=== PATIENT | male | born 1940 | race Caucasian/White ===

== ENCOUNTER 2025-10-12 07:31 | Emergency (ER) | payer MEDICARE, OTHER, SELFPAY ==
[2025-10-12] VITALS (8 sets, daily range): BP systolic 161–182; BP diastolic 76–84; PULSE 76–90; RESP 20; TEMP 36.2; O2SAT 97–98; BMI 30.2
--- NOTE | 2025-10-12 08:15 | ED.NEUROSD ---
HPI - Neuro Symptoms/Deficit General Chief Complaint: Neuro Symptoms/Deficit Stated Complaint: Poss Rx reaction for 2 days; limb spasms Time Seen by Provider: 10/12/25 08:02 Source: patient Mode of arrival: Ambulatory History of Present Illness HPI Narrative: This is an 85-year-old white male who was started on 3 new medications by [facility] a couple of days ago and since then has developed uncontrollable movement in his arms and legs. This appears to be tardive dyskinesia. Patient denies any chest pain shortness of breath abdominal pain nausea vomiting or diarrhea. On Anticoagulants: No Related Data Home Medications ?Medication ?Instructions ?Recorded ?Confirmed furosemide 20 mg tablet 10 mg PO QAM 10/07/21 10/07/21 rosuvastatin 5 mg tablet (Crestor) 5 mg PO DAILY 10/07/21 10/07/21 Allergies Allergy/AdvReac Type Severity Reaction Status Date / Time Penicillins (PENICILLINS) Allergy Severe ANAPHLAXIS, Verified 10/12/25 07:56 EXTREME SWELLING Review of Systems Review of Systems Narrative: GENERAL: Denies chills, fatigue, malaise, fever, sweats. HEENT: Denies sinus pain, ear pain, sore throat, difficulty swallowing, dizziness. RESPIRATORY: Denies dyspnea, cough, wheezing, hemoptysis, sputum. CARDIOVASCULAR: Denies chest pain, palpitations, orthopnea, edema, GASTROINTESTINAL: Denies nausea, vomiting, abdominal pain, diarrhea, constipation, melena. : Denies dysuria, frequency, incontinence, hematuria, urinary retention. MUSCULOSKELETAL: denies weakness, joint pain, or bony pain SKIN: Denies rash, skin lesions, or other NEUROLOGIC: See HPI PSYCHIATRIC: No concerning psychosocial issues. 12 point review of systems is negative except for those stated above Hematologic/Lymphatic On Anticoagulants: No Patient History Medical History (Updated 10/12/25 @ 09:50 by Judson De La Cruz MD) Visit for suture removal Social History Smoking Status: Former smoker Smoking Status: Former smoker Exam Narrative Exam Narrative: GENERAL: [] year old patient appears stated age. Well-developed patient, in mild distress. HEAD: Atraumatic. Normocephalic. EYES: Pupils equal round and reactive. Extraocular motions intact. No scleral icterus. No injection or drainage. ENT: Nose without bleeding, purulent drainage. Throat without erythema, tonsillar hypertrophy or exudate. Airway patent. NECK: Trachea midline. Non tender CARDIOVASCULAR: Regular rate and rhythm without murmurs, gallops, or rubs. RESPIRATORY: Clear to auscultation. Breath sounds equal bilaterally. No wheezes, rales, or rhonchi. GASTROINTESTINAL: Abdomen soft, non-tender, nondistended. EXTREMITIES: No edema or joint tenderness. BACK: Nontender without deformity or crepitance. No flank tenderness. NEURO: AOx3. Patient exhibiting dystonic movements in all extremities. SKIN: No rash or erythema of visible areas Initial Vital Signs Initial Vital Signs: Vital Signs Temperature 97.1 F L 10/12/25 07:39 Pulse Rate 89 10/12/25 07:39 Respiratory Rate 20 10/12/25 07:39 Blood Pressure 182/84 H 10/12/25 07:39 Pulse Oximetry 98 10/12/25 07:39 Oxygen Delivery Method Room Air 10/12/25 07:39 Course Orders Ordered: ED Orders 10/12/25 08:27 CBC Auto Diff [Complete Blood Count AUTO DIFF] Stat CMP [Comprehensive Metabolic Panel] Stat Magnesium Stat Discontinued Medications Diphenhydramine HCl (Diphenhydramine 50 Mg/Ml Vial) 50 mg IV NOW ONE Stop: 10/12/25 08:15 Last Admin: 10/12/25 08:27 Dose: 50 mg Documented By: Lactated Ringer's (Lactated Ringers) 500 mls @ 1,000 mls/hr IV BOLUS ONE Stop: 10/12/25 08:43 Last Infusion: 10/12/25 09:36 Dose: Infused Documented By: Admin: 10/12/25 08:27 Dose: 1,000 mls/hr Documented By: Vital Signs Vital signs: Vital Signs - 8 hr 10/12/25 07:39 Temperature 97.1 F L Pulse Rate 89 Respiratory Rate 20 Blood Pressure 182/84 H Pulse Oximetry 98 Oxygen Delivery Method Room Air MDM - Neuro Symptoms/Deficit Lab Data 10/12/25 08:27 10/12/25 08:27 Labs: Lab Results 10/12/25 Range/Units 08:27 WBC 10.7 (4.5-11.0) X10^3/uL RBC 4.55 (4.5-5.9) X10^6/uL Hgb 13.8 (13.5-17.5) g/dL Hct 40.2 L (41-53) % MCV 88.3 (80-100) fL MCH 30.4 (26-34) PG MCHC 34.4 (30-36) % RDW 14.1 (11.6-14.8) % Plt Count 219 (150-400) X10^3/uL Neut % (Auto) 82.5 H (50-75) % Lymph % (Auto) 7.7 L (25-40) % [place] % (Auto) 8.5 (3-14) % Eos % (Auto) 0.8 L (2-4) % Baso % (Auto) 0.5 (0-2) % Neut # (Auto) 8800 H (1526-6235) /uL Lymph # (Auto) 800 L (1765-2876) /uL [place] # (Auto) 900 (0-900) /uL Eos # (Auto) 100 (0-450) /uL Baso # (Auto) 100 (0-100) /uL Sodium 139 (137-145) mmol/L Potassium 4.2 (3.4-5.1) mmol/L Chloride 108 H (98-107) mmol/L Carbon Dioxide 19 L (22-32) mmol/L BUN 22 H (9-20) mg/dL Creatinine 1.12 (0.66-1.25) mg/dL Estimated GFR > 60 (>60) mL/min BUN/Creatinine Ratio 19.6 (6-22) Glucose 86 (70-99) mg/dL Calcium 8.9 (8.4-10.2) mg/dL Magnesium 2.0 (1.6-2.3) mg/dL Total Bilirubin 0.8 (0.2-1.3) mg/dL AST 33 (17-59) IU/L ALT 17 (<50) IU/L Alkaline Phosphatase 67 (38-126) U/L Total Protein 7.3 (6.3-8.2) g/dL Albumin 4.3 (3.5-5.0) g/dL Globulin 3.0 (1.7-4.1) g/dL Albumin/Globulin Ratio 1.4 (1.0-2.8) MDM Narrative Medical decision making narrative: Patient has CBC within normal limits a chemistry within normal limits a magnesium that was normal. In the emergency room patient was given a L of lactated Ringer's as well as IV Benadryl. Patient is seated be doing better. Because the patient was started on 3 medications by his doctors at [facility] I told him to stop the medications take 25 mg of Benadryl every 6 hours for the next 24 hours is speak with his doctor at the [facility] tomorrow morning. Both the patient and the were agreeable to this plan. Discharge Plan Departure Patient Disposition: Home Clinical Impression: Acute dystonic reaction due to drugs Instructions: Dystonia Movement Disorders Activity Restrictions/Additional Instructions: Take Benadryl 25 mg every 6 hours for the next 24 hours contact your doctor at [facility] in the morning.. Stop all your new medications Prescriptions: No Action rosuvastatin [Crestor] 5 mg tablet 5 mg PO DAILY furosemide 20 mg tablet 10 mg PO QAM Referrals: Miscellaneous,Doctor, [Primary Care Provider, Medical] Stand Alone Forms: Patient Portal/API
[2025-10-12] MEDS: diphenhydrAMINE 50 MG/ML VIAL IV (08:27)
[2025-10-12] MEDS: LACTATED RINGERS 500 ML 1000 ML IV (08:27)
[2025-10-12 08:50] LABS: Add Manual Diff / Slide Review NO; Hematocrit 40.2 % (41-53); Hemoglobin 13.8 g/dL (13.5-17.5); Lymphocytes Absolute Auto 800 /uL (1100-4500); Mean Corpuscular HGB Conc 34.4 % (30-36); Mean Corpuscular Hemoglobin 30.4 PG (26-34); Mean Corpuscular Volume 88.3 fL (80-100); Platelet Count 219 X10^3/uL (150-400)
[2025-10-12 09:00] LABS: Alanine Aminotransferase 17 IU/L (<50); Albumin 4.3 g/dL (3.5-5.0); Albumin Globulin Ratio 1.4 (1.0-2.8); Alkaline Phosphatase 67 U/L (38-126); Blood Urea Nitrogen 22 mg/dL (9-20); Calcium 8.9 mg/dL (8.4-10.2); Carbon Dioxide 19 mmol/L (22-32); Chloride 108 mmol/L (98-107); Estimated Glomerular Filt Rate > 60 mL/min (>60); Globulin 3.0 g/dL (1.7-4.1); Glucose 86 mg/dL (70-99); HEMOLYSIS < 15 (0-50); Magnesium 2.0 mg/dL (1.6-2.3); Potassium 4.2 mmol/L (3.4-5.1); Sodium 139 mmol/L (137-145); Total Protein 7.3 g/dL (6.3-8.2)
== END 2025-10-12 10:15 | disposition home or self-care (01) ==
PROVIDERS: Emergency Provider Emergency Medicine
DX: G24.02 Drug induced acute dystonia (principal)
CPT/HCPCS: 80053; 83735; 85025; 96374; 99284; J1200